=== PATIENT | male | born 1945 | race Caucasian/White ===

== ENCOUNTER 2017-02-19 18:13 | Inpatient (IN) | payer OTHER ==
[~2017-02-19] VITALS: Ht 185.4 cm; Wt 92.1 kg
[2017-02-19 19:30] VITALS: BP 147/91
--- NOTE | 2017-02-19 19:30 | NUR ---
GPS ADMISSION NOTE, RECEIVED PATIENT FROM [facility]. PATIENT ARRIVED ON THIS UNIT AT 1900 VIA STRETCHER WITH 2 EMT ESCORTS. PATIENT ADMITTED ON A 5150 HOLD FOR DTS. PER HOLD PATIENT NEIGHBOR NOTIFIED [facility] BECAUSE THE PATIENT HAS TAKEN AN EXCESSIVE AMOUNT OF HIS MEDICATION. PATIENT TOOK AN EXCESSIVE AMOUNT OF HIS MEDICATION BECAUSE HIS LEFT HIM AFTER 48 YEARS. PATIENT HAD A LARGE ASSORTMENT OF MEDICATIONS WITH HIM OF WHICH SEVERAL BOTTLES OF MEDICATION WERE EMPTY. PATIENT WAS NOT ABLE TO STAND ON HIS OWN AND IS UNABLE TO CONTRACT FOR SAFETY. THE 5150 WAS REVIEWED AND THE DOCUMENTATION IN THE 5150 HOLD APPEARS TO REFLECT THE PRESENTATION OF THE PATIENT. UPON FACE TO FACE ASSESSMENT PATIENT IS CURRENTLY LYING IN BED AWAKE, HAS NO S/S OR COMPLAINTS OF PAIN. PATIENT IS DISPLAYING NO S/S OF APPARENT DISTRESS. PATIENT BREATHING IS UNLABORED WITH EQUAL RISE AND FALL OF THE CHEST. PATIENT IS ALERT AND ORIENTATED X 3 ON ROOM AIR. PATIENT ASSISTED WITH TURING AND REPOSITIONING Q2HR AND PRN FOR COMFORT AND CIRCULATION. PATIENT HAS NO NEEDS AT THIS TIME. PATIENT IS NOTED TO BEING WITHDRAWN, DEPRESSED, DISHEVELED, DISORGANIZED, COOPERATIVE, AND NEEDS REDIRECTION. PATIENT DENIES SUICIDE IDEATIONS AND HOMICIDAL IDEATIONS AT THIS TIME. PATIENT IS UNDER THE PSYCHIATRIC CARE OF DR. AGUILAR AND THE MEDICAL CARE OF DR BARAHONA. PATIENT BELONGINGS WERE INVENTORIED AND CHECKED FOR CONTRABAND. ALL CONTRABAND REMOVED AND STORED IN PATIENT HALLWAY LOCKER. PATIENT ADVANCED DIRECTIVES PREFERENCE, IMMUNIZATIONS QUESTIONER, NECESSARY PAPERWORK, AND SKIN ASSESSMENT COMPLETED. PATIENT ORIENTATED TO ROOM, FLOOR, AND STAFF WITH ALL QUESTIONS ANSWERED. PATIENT EDUCATED ON THE USE OF THE CALL MARES. PATIENT BED SIDE RAILS ARE UP X 2 FOR SAFETY. PATIENT BED IS LOCKED, LOW AND I WILL CONTINUE TO MONITOR THIS PATIENT Q 15 MIN WITH THE HELP OF STAFF TO MAINTAIN SAFETY.
[2017-02-19] MEDS ORDERED: MAGNESIUM HYDROXIDE 30 ML UDC PO PRN (20:30)
[2017-02-19] MEDS ORDERED: ACETAMINOPHEN 325 MG TABLET PO PRN (20:30)
[2017-02-19] MEDS ORDERED: ZOLPIDEM TARTRATE 5 MG TABLET PO PRN (20:30)
[2017-02-19] MEDS ORDERED: LORAZEPAM 0.5 MG TABLET PO PRN (20:30)
[2017-02-19] MEDS ORDERED: MAG HYDROX/AL HYDROX/SIMETH 30 ML UDC PO PRN (20:30)
[2017-02-19] MEDS ORDERED: ASPI-991 PO (20:31)
[2017-02-19] MEDS ORDERED: DULO30CA2 PO (20:32)
[2017-02-19] MEDS ORDERED: GABA-534 PO (20:34)
[2017-02-19] MEDS ORDERED: GABA600T2 PO (20:35)
[2017-02-19] MEDS ORDERED: LISI40TA4 PO (20:35)
[2017-02-19] MEDS ORDERED: MORP15TA PO (20:37)
[2017-02-19 20:41] VITALS: BP 147/91
[2017-02-19] MEDS ORDERED: TRAZ-147 PO (20:41)
[2017-02-19] MEDS ORDERED: TAMS0.4C34 PO (20:41)
[2017-02-19] MEDS ORDERED: METF500T4 PO (20:42)
[2017-02-19] MEDS ORDERED: ATOR20TA PO (20:53)
[2017-02-19] MEDS ORDERED: MORPHINE SULFATE IR 15 MG TABLET PO PRN (21:00)
[2017-02-19] MEDS ORDERED: DEXTROSE 50%-WATER 50 ML DISP.SYRIN IV PRN (21:00)
[2017-02-20 07:21] LABS: CREATININE 1.1 mg/dL (0.6-1.3)
[2017-02-20] MEDS: BLOOD SUGAR DIAGNOSTIC 1 EACH STRIP IN SCH ×3 (07:54→17:36)
[2017-02-20 08:00] VITALS: BP 150/90
[2017-02-20] MEDS: METFORMIN 500 MG TABLET PO SCH ×2 (10:15→16:34)
[2017-02-20] MEDS: ASPIRIN EC 81 MG TABLET.DR PO SCH (10:15)
[2017-02-20] MEDS: GABAPENTIN 300 MG CAPSULE PO SCH (10:15)
[2017-02-20] MEDS: ATORVASTATIN 10 MG TABLET PO SCH (10:15)
[2017-02-20] MEDS: TAMSULOSIN 0.4 MG CAP.SR.24H PO SCH (10:15)
[2017-02-20] MEDS: LISINOPRIL (20MG) 20 MG TABLET PO SCH (10:16)
[2017-02-20] MEDS: INSULIN REGULAR, HUMAN 100 UNIT/ML 3 ML VIAL SQ PRN (10:27)
--- NOTE | 2017-02-20 10:28 | NUR ---
FOIL OPERATOR-NOTES PATIENT BLOOD SUGAR WAS 164 MG/DL,3 UNITS OF HUMULIN R GIVEN ORDERED.
--- NOTE | 2017-02-20 15:54 | NUR ---
Initial discharge plan: Pt. lives alone and wants to return to [address] [place] [id number] . Pt. wants to return. will contact Carli, , and will help form safe and proper discharge.
[2017-02-20 16:00] VITALS: BP 142/85
--- NOTE | 2017-02-20 19:19 | NUR ---
GPS/RN NOTE: PATIENT RESTING IN BED, PLEASANT AND RESPONDS WHEN ENGAGED. NO ACUTE DISTRESS NOTED, DENIES ANY DISCOMFORT.
[2017-02-20 20:00] VITALS: BP 162/94
[2017-02-20 21:38] LABS: IRON, SERUM 40 ug/dl (50-175); TOTAL IRON BINDING CAPACITY 327 ug/dl (250-450)
[2017-02-20] MEDS ORDERED: GABAPENTIN 300 MG CAPSULE PO SCH (22:00)
[2017-02-20] MEDS ORDERED: DULOXETINE HCL 30 MG CAPSULE.DR PO SCH (22:00)
[2017-02-21 07:06] LABS: BASOPHILS % (AUTO) 0.5 % (0.0-2.0); EOSINOPHILS # (AUTO) 0.3 /CMM (0.0-0.7); EOSINOPHILS % (AUTO) 6.5 % (0.0-6.0); HEMATOCRIT 39 % (39-51); HEMOGLOBIN 13.1 g/dL (13.5-17.5); LYMPHOCYTES % (AUTO) 19.3 % (20.0-44.0); MEAN CORPUSCULAR HEMOGLOBIN 28 PG (26.0-33.0); MEAN CORPUSCULAR HGB CONC 33 g/dl (31.0-36.0); MEAN CORPUSCULAR VOLUME 86 fL (80-96); MONOCYTES # (AUTO) 0.6 /CMM (0.1-1.30); MONOCYTES % (AUTO) 12.1 % (2.0-12.0); NEUTROPHILS # (AUTO) 3.2 /CMM (1.8-8.9); NEUTROPHILS % (AUTO) 61.6 % (43.0-81.0); PLATELET COUNT (AUTO) 231 /CMM (150-450); RDW COEFFICIENT OF VARIATION 13.7 (11.5-15.0); RED BLOOD CELL COUNT(AUTO) 4.59 MIL/uL (4.5-6.0); WHITE BLOOD COUNT (AUTO) 5.2 K/uL (4.3-11.0)
[2017-02-21] MEDS: BLOOD SUGAR DIAGNOSTIC 1 EACH STRIP IN SCH ×3 (07:26→17:35)
[2017-02-21 07:38] LABS: CALCIUM, SERUM 8.6 mg/dL (8.5-10.1); CREATININE 0.8 mg/dL (0.6-1.3); MAGNESIUM 1.7 mg/dL (1.8-2.4); PHOSPHORUS 2.8 mg/dL (2.5-4.9); POTASSIUM 3.3 mmol/L (3.5-5.1)
[2017-02-21 08:00] VITALS: BP 153/81
[2017-02-21] MEDS: METFORMIN 500 MG TABLET PO SCH ×2 (08:04→16:23)
[2017-02-21] MEDS: ATORVASTATIN 10 MG TABLET PO SCH (08:04)
[2017-02-21] MEDS: LISINOPRIL (20MG) 20 MG TABLET PO SCH (08:05)
[2017-02-21] MEDS: ASPIRIN EC 81 MG TABLET.DR PO SCH (08:05)
[2017-02-21] MEDS: GABAPENTIN 300 MG CAPSULE PO SCH (08:05)
[2017-02-21] MEDS: TAMSULOSIN 0.4 MG CAP.SR.24H PO SCH (08:05)
[2017-02-21 08:30] LABS: THYROID STIMULATING HORMONE 1.425 uIU/mL (0.358-3.74)
[2017-02-21] MEDS ORDERED: POTASSIUM CHLORIDE 20 MEQ TAB.PRT.SR PO SCH (10:30)
[2017-02-21] MEDS ORDERED: MAGNESIUM OXIDE 400 MG TABLET PO ONE (10:30)
[2017-02-21] MEDS: INSULIN REGULAR, HUMAN 100 UNIT/ML 3 ML VIAL SQ PRN ×2 (11:58→17:10)
[2017-02-21 16:00] VITALS: BP 131/75
--- NOTE | 2017-02-21 17:58 | NUR ---
GPS RN: PATIENT C/O CHEST PAIN RATING 03/25. VS 158/91 HR 72, O2 SAT 95% AT ROOM AIR, T 98.0 RR 20. PATIENT IS ANXIOUS AND RESTLESS. DENIES SOB. DR. JOSSE GOODMAN FOR ORDERS, AWAITING CALL BACK. Addendum: 02/21/17 at 1815 by JERRY NICHOLAS RN DR. BARAHONA IS THE DESULPHURIZER OPERATOR FOR TODAY, HOWEVER, PER [employer] SHE IS OFF CALL AT THIS TIME, DR. LOAIZA IS BODY PRESS OPERATOR.
--- NOTE | 2017-02-21 18:11 | NUR ---
GPS RN: DR. LOAIZA CALLED BACK WITH NEW ORDERS, EKG AND TROPONIN STAT, NOTED AND CARRIED OUT.
--- NOTE | 2017-02-21 19:05 | NUR ---
GPS RN: PATIENT IS ASLEEP AT THIS TIME, RESPIRATION EVEN AND UNLABORED, SKIN WARM TO TOUCH, DRY. TROPONIN PENDING. WILL ENDORSE TO THE UPCOMING NURSE ACCORDINGLY.
--- NOTE | 2017-02-21 19:22 | NUR ---
GPS/RN NOTE: PAGED EPIC, RE: POSITIVE TROPONIN, 0.412.
--- NOTE | 2017-02-21 19:26 | NUR ---
GPS/RN NOTE: SPOKE TO DR. MARTIN, RELAYED POSITIVE TROPONIN OF 0.412, EKG SINUS RHYTHM, OLD INFERIOR INFARCT. MD TRUONG TO TRANSFER PATIENT TO TELEMETRY. VITALS NOW 142/93, HR 71. PATIENT STATED THAT HE FEELS BETTER NOW.
--- NOTE | 2017-02-21 20:38 | NUR ---
GPS/RN NOTE: TRANSFERRED PATIENT TO THE TELE UNIT WITH A BED, CONNECTED TO TELEMONITOR. ROOM 316-A. REPORT GIVEN TO TERESA PLAZA FOR CONTINUITY OF CARE. PATIENT CONDITION STABLE, NO CHEST PAIN NOTED AT THIS TIME. A/O X3.
[2017-02-21] MEDS ORDERED: ACET-868 PO (21:33)
[2017-02-21] MEDS ORDERED: ZOLP5TAB7 PO (21:53)
[2017-02-21] MEDS ORDERED: MAGN400O4 PO (21:53)
[2017-02-21] MEDS ORDERED: LORA0.5T PO (21:53)
[2017-02-21] MEDS ORDERED: LISI40TA4 PO (21:53)
[2017-02-21] MEDS ORDERED: MAG30ORA PO (21:53)
--- NOTE | 2017-02-22 06:57 | NUR ---
GPS/RN NOTE: PATIENT'S BELA WAS NOTIFIED OF THE TRANSFER IN ROOM 316-1 TELEMETRY UNIT.
--- NOTE | 2017-02-22 06:59 | NUR ---
GPS/RN NOTE: DR AGUILAR WAS NOTIFIED ABOUT PATIENT 'S TRANSFER TO TELE UNIT DUE TO CHEST PAIN, IN ROOM 316-1.
[2017-02-25] MEDS ORDERED: MORP15TA PO (02:05)
== END 2017-02-21 20:03 | disposition short-term general hospital (02) | DRG 885 ==
LOC: GPS 18:17
PROVIDERS: ADMIT Psychiatry & Neurology Psychosomatic Medicine; ATTEND Internal Medicine
DX: F32.3 Major depressive disorder, single episode, severe with psychotic features (principal); N18.3 Chronic kidney disease, stage 3 (moderate); F03.91 Unspecified dementia, unspecified severity, with behavioral disturbance; E11.22 Type 2 diabetes mellitus with diabetic chronic kidney disease; F29 Unspecified psychosis not due to a substance or known physiological condition; E11.40 Type 2 diabetes mellitus with diabetic neuropathy, unspecified; I48.0 Paroxysmal atrial fibrillation; E78.5 Hyperlipidemia, unspecified; K21.9 Gastro-esophageal reflux disease without esophagitis; I25.10 Atherosclerotic heart disease of native coronary artery without angina pectoris; Z91.5 Personal history of self-harm; Z96.659 Presence of unspecified artificial knee joint; N40.0 Benign prostatic hyperplasia without lower urinary tract symptoms; I12.9 Hypertensive chronic kidney disease with stage 1 through stage 4 chronic kidney disease, or unspecified chronic kidney disease
CPT/HCPCS: 36415; 80048-TC; 80061-TC; 82565-TC; 82746; 82962-TC; 83540-TC; 83735-TC; 84100-TC; 84443-TC; 84484-TC; 85025-TC; 87081-TC; J1815

== ENCOUNTER 2017-02-21 20:54 | Inpatient (IN) | payer OTHER ==
[~2017-02-21] VITALS: Ht 185.4 cm; Wt 89.0 kg
--- NOTE | 2017-02-21 20:30 | NUR ---
DRESS FINISHER NOTES RECEIVED PT FROM GPS, REPORT RECEIVED FROM TERESA CAMARILLO. PT IS A/0 X 2, VERBALLY RESPONSIVE NO DISTRESS, NO SOB NOTED . BREATHING EVEN AND UNLABORED. WITH C/O CHEST PAIN 2/10 AT THIS TIME, NON RADIATING, UNABLE TO CHARACTERIZE PAIN, RELIEVED BY DISTRACTION AND INACTIVITY. ALL NEEDS AT THIS TIME ATTENDED AND MET. ON 1:1 SITTER FOR SAFETY. CALL LIGHT WITHIN REACH. BED ON LOWEST LEVEL. SR UP X 2 . WILL CONT TO MONITOR. AWAITING FOR ADMISSION ORDERS FROM DR. MARTIN.
--- NOTE | 2017-02-21 20:45 | NUR ---
INSERTED IV ON RIGHT WRIST G#20 , WITH GOOD VENOUS RETURN. PT ACE WELL.
[~2017-02-21 20:54] MED LIST: ASPI-991 PO; ATOR20TA PO; DULO30CA2 PO; GABA-534 PO; GABA600T2 PO; LISI40TA4 PO; METF500T4 PO; MORP15TA PO; TAMS0.4C34 PO; TRAZ-147 PO
[2017-02-21] MEDS ORDERED: ONDANSETRON HCL/PF 4 MG/2 ML VIAL IVP PRN (21:30)
[2017-02-21] MEDS ORDERED: MORPHINE SULFATE INJ 2 MG/ML DISP.SYRIN IV PRN (21:30)
[2017-02-21] MEDS ORDERED: ACET-868 PO (21:33)
[2017-02-21] MEDS ORDERED: MAG30ORA PO (21:53)
[2017-02-21] MEDS ORDERED: MAGN400O4 PO (21:53)
[2017-02-21] MEDS ORDERED: LISI40TA4 PO (21:53)
[2017-02-21] MEDS ORDERED: LORA0.5T PO (21:53)
[2017-02-21] MEDS ORDERED: ZOLP5TAB7 PO (21:53)
[2017-02-21] MEDS ORDERED: ASPIRIN 81 MG TAB.CHEW ONE (22:00)
[2017-02-21] MEDS ORDERED: METOPROLOL TARTRATE 25 MG TABLET ONE (22:01)
[2017-02-21] MEDS ORDERED: SIMVASTATIN 20 MG TABLET ONE (22:02)
[2017-02-21] MEDS: SIMVASTATIN 20 MG TABLET PO SCH (22:20)
[2017-02-21] MEDS: METOPROLOL TARTRATE 25 MG TABLET PO SCH (22:27)
[2017-02-21] MEDS: ASPIRIN 81 MG TAB.CHEW PO SCH (22:27)
--- NOTE | 2017-02-21 22:30 | NUR ---
PT ON SR 74 WITH FIRST DEGREE AV BLOCK ON TELE MONITOR. DENIES ANY CHEST PAIN AT THIS TIME.
[2017-02-21] MEDS ORDERED: NITROGLYCERIN 0.4 MG/TAB BOTTLE ONE (22:34)
[2017-02-21] MEDS: NITROGLYCERIN 0.4 MG/TAB BOTTLE SL PRN (22:41)
--- NOTE | 2017-02-21 22:41 | NUR ---
PT C/O CHEST PAIN 7/10 RADIATING TO HIS LEFT ARM, PT UNABLE TO CHARACTERIZE HOW THE PAIN IS LIKE. BP : 149/ 93, NITRO GIVEN ORDERED. WILL CONT TO MONITOR CLOSELY.
--- NOTE | 2017-02-21 22:46 | NUR ---
PT VERBALIZED THAT HIS CHEST PAIN WAS RELIEVED BY NITRO, DENIES ANY CHEST PAIN OR DISCOMFORT AT THIS TIME. WILL CONT TO MONITOR.
[2017-02-21] MEDS ORDERED: DEXTROSE 50%-WATER 50 ML DISP.SYRIN IV PRN (23:00)
[2017-02-21] MEDS ORDERED: ENOXAPARIN SODIUM 100 MG/ML DISP.SYRIN SQ ONE (23:06)
[2017-02-21] MEDS ORDERED: ZOLPIDEM TARTRATE 5 MG TABLET ONE (23:08)
[2017-02-21] MEDS: ENOXAPARIN SODIUM 100 MG/ML DISP.SYRIN SQ SCH (23:18)
--- NOTE | 2017-02-21 23:18 | NUR ---
LOVENOX 90 MG SQ GIVEN ORDERED WITNESSED BY TERESA PATTERSON.
[2017-02-21] MEDS: ZOLPIDEM TARTRATE 5 MG TABLET PO PRN (23:19)
[2017-02-21] MEDS: BLOOD SUGAR DIAGNOSTIC 1 EACH STRIP IN SCH (23:34)
[2017-02-21] MEDS: INSULIN REGULAR, HUMAN 100 UNIT/ML 3 ML VIAL SQ PRN (23:36)
--- NOTE | 2017-02-22 00:08 | NUR ---
RELAYED TROPONIN : 0.[address] MARTIN, AND ALSO PT WAS SEEN AND EXAMINED BY DR. MARTIN.
[2017-02-22] MEDS ORDERED: ONDANSETRON HCL/PF 4 MG/2 ML VIAL ONE (04:43)
[2017-02-22] MEDS: NITROGLYCERIN 0.4 MG/TAB BOTTLE SL PRN ×2 (05:15→08:49)
--- NOTE | 2017-02-22 07:00 | NUR ---
pt was seen and examined by dr. bush.
[2017-02-22] MEDS: BLOOD SUGAR DIAGNOSTIC 1 EACH STRIP IN SCH ×4 (07:04→21:05)
--- NOTE | 2017-02-22 07:15 | NUR ---
FILLER SIFTER MACHINE NOTES PT IS AWAKE, PT IS A/0 X 2, VERBALLY RESPONSIVE NO DISTRESS, NO SOB NOTED . BREATHING EVEN AND UNLABORED. DENIES ANY CHEST PAIN OR DISCOMFORT AT THIS TIME. ALL NEEDS AT THIS TIME ATTENDED AND MET. LATEST BS : 116. NO S/S OF HYPOGLYCEMIA. ON 1:1 SITTER FOR SAFETY. CALL LIGHT WITHIN REACH. BED ON LOWEST LEVEL. SR UP X 2 . ENDORSED TO DAY SHIFT RN FOR JAI.
[2017-02-22 07:46] LABS: BASOPHILS % (AUTO) 0.5 % (0.0-2.0); EOSINOPHILS # (AUTO) 0.2 /CMM (0.0-0.7); EOSINOPHILS % (AUTO) 4.5 % (0.0-6.0); HEMATOCRIT 40 % (39-51); HEMOGLOBIN 13.1 g/dL (13.5-17.5); LYMPHOCYTES # (AUTO) 1.1 /CMM (0.8-4.8); LYMPHOCYTES % (AUTO) 23.2 % (20.0-44.0); MEAN CORPUSCULAR HEMOGLOBIN 28 PG (26.0-33.0); MEAN CORPUSCULAR HGB CONC 33 g/dl (31.0-36.0); MEAN CORPUSCULAR VOLUME 86 fL (80-96); MONOCYTES # (AUTO) 0.7 /CMM (0.1-1.30); MONOCYTES % (AUTO) 14.6 % (2.0-12.0); NEUTROPHILS # (AUTO) 2.7 /CMM (1.8-8.9); NEUTROPHILS % (AUTO) 57.2 % (43.0-81.0); PLATELET COUNT (AUTO) 236 /CMM (150-450); RDW COEFFICIENT OF VARIATION 13.6 (11.5-15.0); RED BLOOD CELL COUNT(AUTO) 4.66 MIL/uL (4.5-6.0); WHITE BLOOD COUNT (AUTO) 4.8 K/uL (4.3-11.0)
--- NOTE | 2017-02-22 07:50 | NUR ---
MS/RN OPENING NOTES RECEIVED PT ASLEEP IN BED, EASILY AWAKENS WITH SITTER AT BEDSIDE. A/O X2, NO C/O PAIN OR DISCOMFORTS AT THIS TIME. ON TELE-MONITORING WITH CURRENT READING OF SR WITH PVC'S 74, NO C/O OF CHEST PAIN AT THIS TIME. IV ACCESS ON RIGHT WRIST INTACT AND PATENT. ON ROOM AIR, BREATHING EVEN AND UNLABORED. BED IN LOW POSITION AND LOCKED WITH SIDE RAILS UP X2. CALL LIGHT WITHIN REACH. ALL SAFETY MEASURES WILL BE MAINTAINED. WILL CONTINUE TO MONITOR PT ACCORDINGLY.
[2017-02-22 08:00] VITALS: BP 171/103
[2017-02-22 08:02] LABS: CALCIUM, SERUM 8.7 mg/dL (8.5-10.1); CREATININE 0.8 mg/dL (0.6-1.3); POTASSIUM 2.9 mmol/L (3.5-5.1)
[2017-02-22] MEDS: ASPIRIN 81 MG TAB.CHEW PO SCH (08:42)
[2017-02-22] MEDS: METOPROLOL TARTRATE 25 MG TABLET PO SCH ×2 (08:43→17:12)
[2017-02-22] MEDS: ENOXAPARIN SODIUM 100 MG/ML DISP.SYRIN SQ SCH ×2 (08:51→21:03)
--- NOTE | 2017-02-22 08:59 | NUR ---
RN NOTES PATIENT COMPLAINED OF CHEST PAIN, OFFERED TO GIVE NITROSTAT 0.4MG BUT REFUSED AND STATED THAT IT DOESN'T WORK FOR HIM. MORPHINE SULFATE 1MG IV OFFERED AND SAID YES. MORPHINE SULF[facility] TAKEN OUT FROM [facility] BUT PT SUDDENLY SAID THAT IT'S ONLY MILD CHEST PAIN AND WILL TAKE THE NITROSTAT 0.4MG SUBLINGUAL INSTEAD AND GIVEN RELIVING HIS CHEST PAIN. WILL CONTINUE TO MONITOR.
[2017-02-22] MEDS ORDERED: MORPHINE SULFATE INJ 4 MG/ML DISP.SYRIN IV PRN (09:00)
[2017-02-22] MEDS ORDERED: VALSARTAN 80 MG TABLET PO SCH (09:00)
--- NOTE | 2017-02-22 09:18 | NUR ---
RN NOTES PATIENT STILL WITH HIGH TROPONIN 1 LEVEL 0.481 THIS MORNING. POTASSIUM LEVEL ALSO LOW 2.9, MD MADE AWARE WITH ORDER TO CLOSELY MONITO R PT AND TO GIVE K-DUR 60MEQ TAB PO X 1 DOSE. WILL CONTINUE TO MONITOR.
[2017-02-22 09:21] LABS: ALBUMIN 3.2 g/dL (3.4-5.0); CALCIUM, SERUM 8.9 mg/dL (8.5-10.1); CREATININE 0.7 mg/dL (0.6-1.3); MAGNESIUM 1.6 mg/dL (1.8-2.4); PHOSPHORUS 2.9 mg/dL (2.5-4.9)
[2017-02-22 09:38] LABS: TOTAL PROTEIN, SERUM 6.6 g/dL (6.4-8.2)
--- NOTE | 2017-02-22 09:47 | NUR ---
RN NOTES PT REFUSED MORPHINE SULFATE 1MG IVP EARLIER. WENT TO RETURN MORPHINE IN THE OMNICELL BUT COULDN'T BE WASTED BECAUSE SYRINGE DOSE IS 4MG AND 3 MG WASTED ALREADY EARLIER IN THE OMNICELL. CALLED PHARMACY AND CAME-UP TO UNIT AND SAME TRIED TO WASTE MORPHINE 4MG IN THE OMNICELL BUT OMNICELL WOULDN'T ALLOW HER. PHARMACIST SAID THAT SHE WILL TAKE THE MORPHINE DOWN IN THE PHARMACY AND WILL WASTE IT THERE AND JUST WRITE IT ON THE PROGRESS NOTES.
--- NOTE | 2017-02-22 09:56 | NUR ---
RN NOTES PT WENT DOWN TO RADIOLOGY FOR CHEST X-RAY VIA WHEELCHAIR.
[2017-02-22 09:58] LABS: BILIRUBIN,TOTAL 0.5 mg/dL (0.2-1.0)
[2017-02-22] MEDS ORDERED: POTASSIUM CHLORIDE 10 MEQ TABLET.SA PO ONE (10:00)
[2017-02-22 12:00] VITALS: BP 149/99
[2017-02-22] MEDS: Magnesium 1GM/D5W 100ML PREMIX 100 ML IV SCH ×2 (12:37→13:23)
[2017-02-22] MEDS: INSULIN REGULAR, HUMAN 100 UNIT/ML 3 ML VIAL SQ PRN (12:39)
[2017-02-22] MEDS: LORAZEPAM 1 MG TABLET PO PRN ×2 (12:41→21:04)
--- NOTE | 2017-02-22 12:42 | NUR ---
RN NOTES PATIENT NOTED RESTLESS, STANDING UP AND WALKING AROUND HIS ROOM AND ALSO ON THE HALLWAYS. SEEN BY DR FIELD WITH ORDER TO GIVE ATIVAN 1MG TAB Q 8HRS PRN. WILL CONTINUE TO MONITOR.
--- NOTE | 2017-02-22 15:10 | NUR ---
RN NOTES RECEIVED CALL FROM LAB THAT PT'S TROPONIN LEVEL TAKEN AT 1301H STILL HIGH 0.538, DR NEVES MADE AWARE. WILL CONTINUE TO MONITOR
[2017-02-22 16:00] VITALS: BP 145/89
--- NOTE | 2017-02-22 19:32 | NUR ---
TELE/RN CLOSING NOTES PATIENT RESTING IN BED WITH SITTER AT BEDSIDE. A/O X2 WITH PERIOD OF AGITATION NOTED DURING THE DAY. MAINTAINED ON TELE-MONITORING WITH CURRENT READING OF SR WITH PAC'S 73, NO C/O OF CHEST PAIN AT THIS TIME. IV ACCESS ON RIGHT WRIST INTACT AND PATENT. ON ROOM AIR, BREATHING EVEN AND UNLABORED. KEPT BED IN LOW POSITION AND LOCKED WITH SIDE RAILS UP X2. CALL LIGHT WITHIN REACH. ALL SAFETY MEASURES WILL MAINTAINED. ALL NEEDS AND CARE ATTENDED WELL. ALL DUE MEDS GIVEN AND TOLERATED. ENDORSED TO PROCESS SAFETY SPECIALIST NURSE FOR JAI.
--- NOTE | 2017-02-22 19:45 | NUR ---
TELERN FULLY AWAKE, BEHAVIOR ACCEPTABLE, COOPERATIVE. SITTER AT BEDSIDE. PAIN FREE. NO NEEDS FOR NOW.
[2017-02-22 20:00] VITALS: BP 151/97
--- NOTE | 2017-02-22 21:00 | NUR ---
TELERN WANTS ALL MEDS GIVEN EARLY. STATED DID NOT HAVE THE CHANCE TO SLEEP. DUE MEDS ADMINISTERED. ATIVAN 1 MG PO GIVEN FOR NOW, APPEARS TO GET AGITATED OF THIS TIME. BS WAS 128 NO COVERAGE. BRP STANDBY ASSIST.
[2017-02-22] MEDS: SIMVASTATIN 20 MG TABLET PO SCH (21:04)
[2017-02-23] VITALS (9 sets, daily range): BP systolic 126–160; BP diastolic 76–101
--- NOTE | 2017-02-23 04:34 | NUR ---
TELERN SLEEPING, APPEARS COMFORTABLE.
[2017-02-23] MEDS: BLOOD SUGAR DIAGNOSTIC 1 EACH STRIP IN SCH ×4 (07:01→21:48)
--- NOTE | 2017-02-23 07:03 | NUR ---
TELERN BS 129. NO COVERAGE. NO COMPLAINTS MADE.
[2017-02-23 07:30] LABS: BASOPHILS % (AUTO) 0.8 % (0.0-2.0); EOSINOPHILS # (AUTO) 0.3 /CMM (0.0-0.7); EOSINOPHILS % (AUTO) 4.9 % (0.0-6.0); HEMATOCRIT 42 % (39-51); HEMOGLOBIN 13.7 g/dL (13.5-17.5); LYMPHOCYTES # (AUTO) 1.2 /CMM (0.8-4.8); LYMPHOCYTES % (AUTO) 22.8 % (20.0-44.0); MEAN CORPUSCULAR HEMOGLOBIN 28 PG (26.0-33.0); MEAN CORPUSCULAR HGB CONC 33 g/dl (31.0-36.0); MEAN CORPUSCULAR VOLUME 85 fL (80-96); MONOCYTES # (AUTO) 0.7 /CMM (0.1-1.30); MONOCYTES % (AUTO) 14.1 % (2.0-12.0); NEUTROPHILS # (AUTO) 3.1 /CMM (1.8-8.9); NEUTROPHILS % (AUTO) 57.4 % (43.0-81.0); PLATELET COUNT (AUTO) 238 /CMM (150-450); RDW COEFFICIENT OF VARIATION 13.9 (11.5-15.0); RED BLOOD CELL COUNT(AUTO) 4.88 MIL/uL (4.5-6.0); WHITE BLOOD COUNT (AUTO) 5.3 K/uL (4.3-11.0)
--- NOTE | 2017-02-23 07:56 | NUR ---
MOUNTER OPENING NOTE PATIENT IS ALERT AND ORIENTED x3. HARD OF HEARING. NO PAIN STATED AT THIS TIME, BY PATIENT. ON 5250 HOLD FOR HARM TO SELF. ENDS ON 03/06/17. CALL LIGHT WITHIN REACH. SAFETY MEASURES IMPLEMENTED. ABLE TO COMMUNICATE NEEDS. SITTER AT BEDSIDE. AMBULATORY. ON TELE MONITOR-SINUS RHYTHM. CARDIAC DIET. IV INTACT AND PATENT NO REDNESS OR SWELLING NOTED. BLOOD SUGARS TO BE MONITORED. NO KNOWN ALLERGIES. CALL LIGHT WITHIN REACH. SAFETY MEASURES IMPLEMENTED. WILL CONTINUE TO MONITOR
[2017-02-23 07:58] LABS: CALCIUM, SERUM 9.1 mg/dL (8.5-10.1); CREATININE 0.7 mg/dL (0.6-1.3); MAGNESIUM 2.1 mg/dL (1.8-2.4); PHOSPHORUS 3.5 mg/dL (2.5-4.9); POTASSIUM 3.1 mmol/L (3.5-5.1)
[2017-02-23] MEDS: ASPIRIN 81 MG TAB.CHEW PO SCH (08:53)
[2017-02-23] MEDS: POTASSIUM CHLORIDE 20 MEQ TAB.PRT.SR PO SCH ×3 (08:53→12:23)
[2017-02-23] MEDS: METOPROLOL TARTRATE 25 MG TABLET PO SCH ×2 (08:53→17:12)
[2017-02-23] MEDS: VALSARTAN 80 MG TABLET PO SCH (08:54)
[2017-02-23] MEDS: ENOXAPARIN SODIUM 100 MG/ML DISP.SYRIN SQ SCH ×3 (08:55→21:54)
[2017-02-23] MEDS: NITROGLYCERIN 0.4 MG/TAB BOTTLE SL PRN ×2 (09:27→22:14)
[2017-02-23] MEDS: LORAZEPAM 1 MG TABLET PO PRN ×2 (09:56→23:38)
[2017-02-23] MEDS: clonazePAM 0.5 MG TABLET PO SCH ×2 (12:23→17:12)
[2017-02-23] MEDS ORDERED: SERTRALINE HCL 25 MG TABLET PO SCH (13:00)
[2017-02-23] MEDS: HYDROCODONE/APAP 5/325MG 1 EACH TABLET PO PRN (17:12)
[2017-02-23] MEDS ORDERED: METHYL SALICYLATE/MENTHOL 28GM 28 GM TUBE TP PRN (18:00)
--- NOTE | 2017-02-23 18:42 | NUR ---
BULKER CLOSING NOTE PATIENT IS ALERT AND ORIENTED x3. NO PAIN AT THIS TIME. NO SOB OR DISTRESS NOTED. CALL LIGHT WITHIN REACH AT ALL TIMES. SAFETY MEASURES IMPLEMENTED. ALL DUE MEDICATIONS GIVEN ORDERED. ALL NURSING CARE NEEDS ATTENDED TO. ON 5250 FOR HARM TO SELF. HAS SITTER AT BEDSIDE. NO THOUGHTS OF SUICIDAL IDEATION NOTED THROUGHOUT MY SHIFT. NO PLAN TO CARRY OUT SUICIDAL IDEATION MENTIONED WHEN ASKED. ABLE TO COMMUNICATE NEEDS. WILL ENDORSE TO CONCERT PROMOTER NURSE FOR JAI
--- NOTE | 2017-02-23 19:30 | NUR ---
INFORMATION COORDINATOR OPENING NOTES: PATIENT IN BED, AOX3, NO ROOM AIR AT THIS TIME. BREATHING EVEN AND UNLABORED. BREATH SOUNDS CLEAR TO AUSCULTATION, SLIGHTLY DIMINISHED AT LOWER LUNG SHAIKH. APPEARS CALM ,COOPERATIVE AND IN NO DISTRESS. DENIES CHEST PAIN AT THIS TIME. DOES NOT VERBALIZE ANY SUICIDAL IDEATION/ THOUGHTS OF HARMING SELF OR OTHERS. ON TELE MONITORING: SR AT RATE OF 70S WITH OCCASIONAL PVCS. PIV OVER R WRIST G20 INTACT AND PATENT TO FLUSH. PROVIDED FOR SAFE ENVIRONMENT, SITTER AT BEDSIDE. BED IN LOWEST AND LOCKED POSITION, SIDERAILS UPX3. WILL CONT TO MONITOR.
[2017-02-23] MEDS ORDERED: NICOTINE PATCH (21MG) 21 MG PATCH.TD24 TD SCH (20:00)
--- NOTE | 2017-02-23 21:41 | NUR ---
SPOKE TO DR MARTIN RE LOVENOX 90 MG SCHEDULED FOR TONIGHT AT 2100 PM, WHETHER IT CAN BE GIVEN SINCE PATIENT WILL BE GOING FOR CARDIAC CATH TOMORROW AT [facility] SCHEDULED AT 10 AM.
--- NOTE | 2017-02-23 21:44 | NUR ---
PER DR MARTIN, OK TO GIVE LOVENOX AT THIS TIME.
[2017-02-23] MEDS: ZOLPIDEM TARTRATE 5 MG TABLET PO PRN (21:47)
[2017-02-23] MEDS: SIMVASTATIN 20 MG TABLET PO SCH (21:47)
[2017-02-23] MEDS: INSULIN REGULAR, HUMAN 100 UNIT/ML 3 ML VIAL SQ PRN (21:53)
--- NOTE | 2017-02-23 22:10 | NUR ---
SPOKE TO DR BRADEN RE PT'S LOVENOX, PER , HOLD THE LOVENOX TONIGHT AND TOMORROW AM. NOTED AND CARRIED OUT. JAYMIE HELD FOR ANNA.
--- NOTE | 2017-02-23 22:14 | NUR ---
RN NOTES: PATIENT COMPLAINNG OF CHEST PAIN, UNABLE TO SCALE, DESCRIBED "VERY HIGH" AND PRESSING. ADMINISTERED NITROSTAT SL 0.4 MG PRN. BP CHECKED AT 154/101, HR: 65, ON O2 AT 3 LPM VIA NC. WILL CONT TO MONITOR CLOSELY.
--- NOTE | 2017-02-23 22:24 | NUR ---
RN NOTES: SPOKE TO DR AGUILAR OVER PHONE, INFORMED MD THAT PATIENT HAS BEEN CALM AND COOPERATIVE, NO VERBALIZATION OF SI, BUT IS COMPLAINING OF CP. DR AGUILAR GAVE INSTRUCTIONS TO CALL HER AT 0630 AM TOMORROW, SO THAT HOLD CAN BE D'SHANTE, AND TO GIVE ATIVAN AT AROUND 0615 AM. NO SPECIFIC INSTRUCTION GIVEN IF [facility] WILL BE S[facility],, BUT PER DR AGUILAR, AMBULANCE HAS AN RN, AND WE CAN CALL HER KAELYN AM TO VERIFY IF NEEDED .
--- NOTE | 2017-02-23 22:35 | NUR ---
PATIENT STATES THAT CHEST PAIN HAS "GONE DOWN". BP RECHECKED AT 140/97, HR: 68 O2 SAT 97% ON 3 LPM VIA NC.
[2017-02-24] VITALS: BP 160/79
[2017-02-24] MEDS: HYDROCODONE/APAP 5/325MG 1 EACH TABLET PO PRN (00:57)
[2017-02-24 04:00] VITALS: BP 153/98
[2017-02-24 04:49] LABS: BASOPHILS % (AUTO) 0.5 % (0.0-2.0); EOSINOPHILS # (AUTO) 0.3 /CMM (0.0-0.7); EOSINOPHILS % (AUTO) 5.8 % (0.0-6.0); HEMATOCRIT 44 % (39-51); HEMOGLOBIN 14.4 g/dL (13.5-17.5); LYMPHOCYTES # (AUTO) 1.3 /CMM (0.8-4.8); LYMPHOCYTES % (AUTO) 23.9 % (20.0-44.0); MEAN CORPUSCULAR HEMOGLOBIN 28 PG (26.0-33.0); MEAN CORPUSCULAR HGB CONC 33 g/dl (31.0-36.0); MEAN CORPUSCULAR VOLUME 86 fL (80-96); MONOCYTES # (AUTO) 0.7 /CMM (0.1-1.30); MONOCYTES % (AUTO) 13.3 % (2.0-12.0); NEUTROPHILS # (AUTO) 3.1 /CMM (1.8-8.9); NEUTROPHILS % (AUTO) 56.5 % (43.0-81.0); PLATELET COUNT (AUTO) 228 /CMM (150-450); RED BLOOD CELL COUNT(AUTO) 5.09 MIL/uL (4.5-6.0); WHITE BLOOD COUNT (AUTO) 5.5 K/uL (4.3-11.0)
[2017-02-24 05:12] LABS: ALBUMIN 3.4 g/dL (3.4-5.0); BILIRUBIN,TOTAL 0.5 mg/dL (0.2-1.0); CREATININE 0.8 mg/dL (0.6-1.3); MAGNESIUM 2.1 mg/dL (1.8-2.4); PHOSPHORUS 3.9 mg/dL (2.5-4.9); POTASSIUM 3.1 mmol/L (3.5-5.1)
[2017-02-24 05:20] LABS: TROPONIN I 0.42 ng/mL (0.00-0.056)
--- NOTE | 2017-02-24 05:44 | NUR ---
RN NOTES: INFORMED DR LUX THAT PATIENT'S SERUM K : 3.1. MD ORDERED FOR KCL 40 MEQS PO ONE TIME ONLY. ALSO INFORMED MD THAT TROPONIN HAS TRENDED DOWN TO 0.420, BUT IS STILL ELEVATED. NNO GIVEN.
[2017-02-24] MEDS ORDERED: POTASSIUM CHLORIDE 20 MEQ TAB.PRT.SR PO ONE ×2 (05:48→06:00)
[2017-02-24] MEDS: BLOOD SUGAR DIAGNOSTIC 1 EACH STRIP IN SCH ×2 (05:51→12:27)
[2017-02-24 06:05] LABS: INR 1.08 (0.87-1.13); PROTHROMBIN TIME 11.6 SECS (9.5-12.7)
--- NOTE | 2017-02-24 06:16 | NUR ---
RN NOTES: SPOKE TO DR AGUILAR, PER MD, GIVEN ATIVAN 1 MG PO ONCE AT AROUND [id number] AM PRIOR TO PICKUP. ALSO ORDERED FOR 5250 HOLD TO BE D'SHANTE. PER MD, NO URGENT NEED FOR SITTER TO ACCOMPANY PATIENT TO [facility], AMBULANCE WILL BE WITH AN RN. NOTED AND CARRIED OUT.
[2017-02-24] MEDS: LORAZEPAM 1 MG TABLET PO PRN (06:21)
[2017-02-24] MEDS: INSULIN REGULAR, HUMAN 100 UNIT/ML 3 ML VIAL SQ PRN ×2 (06:36→12:26)
--- NOTE | 2017-02-24 06:45 | NUR ---
RN NOTES: CALLED , BELA LINDSAY , ABOUT PATIENT BEING TRANSFERRED TO [facility], HOWEVER, SHE DID NOT ANSER, LEFT VOICEMAIL.
--- NOTE | 2017-02-24 07:05 | NUR ---
surgical instrument mechanic initial notes Received patient in bed, asleep, head of bed elevated, no SOB or distress noted, on 02 @ 2lpm via NC and tolerated wel, lungs are clear on auscultation, 02 saturation of 98%, no complaint of pain or discomfort at this time. IV intact and patent. Kept patient NPO at this time to transfer to [facility] for cardiac cath. Sitter at bedside for constant monitoring. Kept patient clean and comfortable in bed, call light with in patient reach, will continue to monitor accordingly. On tele monitor SR heart rate of 70 with PVC's.
--- NOTE | 2017-02-24 07:30 | NUR ---
RN NOTES: GAVE REPORT TO TERESA BLANCA AT [facility]. PER EVANGELIST, GREEK PROFESSOR TIME MUST BE CHANGED TO 0800 AM 0700 AM GREEK PROFESSOR IS TOO EARLY. CALLED MED [facility]PONSE TO ADJUST THE GREEK PROFESSOR TIME.
[2017-02-24 08:00] VITALS: BP 144/79
--- NOTE | 2017-02-24 08:00 | NUR ---
RN NOTES: REPORT GIVEN TO MED [facility]PON[facility] GROCERY SPECIALIST.
--- NOTE | 2017-02-24 08:05 | NUR ---
utility plant operative notes Received a call from [facility] rn case mgr Aletha and per Aletha to cancel the transfer due to she spoke to her that he had cath in november this year. Informed Dr. Light and made aware, resume all medications and previous diet order. All orders carried out and noted. Will continue to monitor accordingly.
[2017-02-24] MEDS: METOPROLOL TARTRATE 25 MG TABLET PO SCH ×2 (09:25→16:09)
[2017-02-24] MEDS: clonazePAM 0.5 MG TABLET PO SCH ×3 (09:25→16:08)
[2017-02-24] MEDS: VALSARTAN 80 MG TABLET PO SCH (09:25)
[2017-02-24] MEDS: ENOXAPARIN SODIUM 100 MG/ML DISP.SYRIN SQ SCH (09:26)
[2017-02-24] MEDS: ASPIRIN 81 MG TAB.CHEW PO SCH (09:27)
[2017-02-24] MEDS ORDERED: SERTRALINE HCL 25 MG TABLET PO SCH (14:00)
[2017-02-24] MEDS ORDERED: METO25TA20 PO (14:55)
[2017-02-24] MEDS ORDERED: HYDR-3326 PO (14:55)
[2017-02-24] MEDS ORDERED: METH28OI2 TP (14:55)
[2017-02-24] MEDS ORDERED: ASPI81TA2 PO ×2 (14:55→18:37)
[2017-02-24] MEDS ORDERED: VALS80TA2 PO (14:55)
[2017-02-24] MEDS ORDERED: SERT25TA5 PO (14:55)
[2017-02-24] MEDS ORDERED: SIMV20TA6 PO ×2 (14:55→18:37)
[2017-02-24] MEDS ORDERED: CLON0.5T4 PO ×2 (14:55→18:37)
[2017-02-24] MEDS ORDERED: Blood Sugar Diagnostic IN (14:55)
[2017-02-24 16:00] VITALS: BP 148/90
[2017-02-24 16:09] VITALS: BP 148/90
--- NOTE | 2017-02-24 18:15 | NUR ---
ms sock turner notes Discharge instructions given to patient and able to understand instructions. Signed discharge paper and belonging list. Patient discharge to [facility], report given to Ena. All hold paper transferred to [facility]. Flu vaccine not given due to out of season, Pneumonia vaccine refused. Explained the risk and benefits x 3 and still refused vaccination. Patient left the unit via wheelchair accompanied by assigned CONTINUOUS IMPROVEMENT CONSULTANT in stable condition, no SOB or distress noted. No complaint of pain or discomfort noted, nor chest pain. Vital signs checked and recorded. Skin is intact. MD and charge nurse aware.
[2017-02-24] MEDS ORDERED: HYDR-552 PO (18:37)
[2017-02-24] MEDS ORDERED: METO25TA6 PO (18:37)
[2017-02-24] MEDS ORDERED: SERT25TA PO (18:37)
[2017-02-24] MEDS ORDERED: VALS160T2 PO (18:37)
[2017-02-25] MEDS ORDERED: MORP15TA PO ×2 (02:05)
[2017-02-25] MEDS ORDERED: GABA600T2 PO (02:11)
[2017-02-25] MEDS ORDERED: GABA-534 PO (02:11)
== END 2017-02-24 17:17 | DRG 281 ==
LOC: TELE 20:54 → MED 02-24 08:08
PROVIDERS: ADMIT Internal Medicine; ATTEND Psychiatry & Neurology Psychosomatic Medicine
DX: I21.4 Non-ST elevation (NSTEMI) myocardial infarction (principal); E44.1 Mild protein-calorie malnutrition; E11.22 Type 2 diabetes mellitus with diabetic chronic kidney disease; F33.3 Major depressive disorder, recurrent, severe with psychotic symptoms; I13.0 Hypertensive heart and chronic kidney disease with heart failure and stage 1 through stage 4 chronic kidney disease, or unspecified chronic kidney disease; I50.9 Heart failure, unspecified; J98.11 Atelectasis; I48.91 Unspecified atrial fibrillation; N18.3 Chronic kidney disease, stage 3 (moderate); D50.9 Iron deficiency anemia, unspecified; E87.6 Hypokalemia; E83.42 Hypomagnesemia; E78.5 Hyperlipidemia, unspecified; K21.9 Gastro-esophageal reflux disease without esophagitis; Z86.73 Personal history of transient ischemic attack (TIA), and cerebral infarction without residual deficits; N40.0 Benign prostatic hyperplasia without lower urinary tract symptoms; Z98.61 Coronary angioplasty status; Z91.5 Personal history of self-harm; I25.10 Atherosclerotic heart disease of native coronary artery without angina pectoris; Z68.25 Body mass index [BMI] 25.0-25.9, adult
CPT/HCPCS: 36415; 71010-TC; 71020-TC; 80048-TC; 80053-TC; 80061-TC; 82962-TC; 83735-TC; 84100-TC; 84484-TC; 85025-TC; 85610-TC; 85730-TC; 87081-TC; 93307-TC; J1650; J1815; J2270; J2405; J3475; J7050

== ENCOUNTER 2017-02-24 17:28 | Inpatient (IN) | payer OTHER ==
[~2017-02-24 17:28] MED LIST changes: +ACET-868 PO; +ASPI81TA2 PO; +Blood Sugar Diagnostic IN; +CLON0.5T4 PO; +HYDR-3326 PO; +LORA0.5T PO; +MAG30ORA PO; +MAGN400O4 PO; +METH28OI2 TP; +METO25TA20 PO; +SERT25TA5 PO; +SIMV20TA6 PO; +VALS80TA2 PO; +ZOLP5TAB7 PO
[2017-02-24] MEDS ORDERED: MAG HYDROX/AL HYDROX/SIMETH 30 ML UDC PO PRN (18:30)
[2017-02-24] MEDS ORDERED: MAGNESIUM HYDROXIDE 30 ML UDC PO PRN (18:30)
[2017-02-24] MEDS ORDERED: ACETAMINOPHEN 325 MG TABLET PO PRN (18:30)
[2017-02-24] MEDS ORDERED: HYDR-552 PO (18:37)
[2017-02-24] MEDS ORDERED: METO25TA6 PO (18:37)
[2017-02-24] MEDS ORDERED: CLON0.5T4 PO (18:37)
[2017-02-24] MEDS ORDERED: VALS160T2 PO (18:37)
[2017-02-24] MEDS ORDERED: ASPI81TA2 PO (18:37)
[2017-02-24] MEDS ORDERED: SERT25TA PO (18:37)
[2017-02-24] MEDS ORDERED: SIMV20TA6 PO (18:37)
[2017-02-24] MEDS ORDERED: DEXTROSE 50%-WATER 50 ML DISP.SYRIN IV PRN (19:30)
[2017-02-24] MEDS: HYDROCODONE/APAP 5/325MG 1 EACH TABLET PO PRN (20:28)
[2017-02-24] MEDS: TEMAZEPAM 7.5 MG CAPSULE PO PRN (21:21)
[2017-02-24] MEDS: SIMVASTATIN 20 MG TABLET PO SCH (21:21)
[2017-02-24] MEDS: BLOOD SUGAR DIAGNOSTIC 1 EACH STRIP VI SCH (21:26)
[2017-02-24] MEDS: *INSULIN REGULAR(HUMULIN R)HUM 100 UNIT/ML VIAL SQ PRN (21:28)
[2017-02-25] MEDS: HYDROCODONE/APAP 5/325MG 1 EACH TABLET PO PRN ×4 (00:50→22:13)
[2017-02-25] MEDS ORDERED: MORP15TA PO ×2 (02:05)
[2017-02-25] MEDS ORDERED: GABA600T2 PO (02:11)
[2017-02-25] MEDS ORDERED: GABA-534 PO (02:11)
[2017-02-25] MEDS: BLOOD SUGAR DIAGNOSTIC 1 EACH STRIP VI SCH ×4 (07:43→21:03)
[2017-02-25] MEDS: INSULIN REGULAR, HUMAN 100 UNIT/ML 3 ML VIAL SQ PRN ×2 (08:11→17:05)
[2017-02-25] MEDS: TAMSULOSIN 0.4 MG CAP.SR.24H PO SCH (08:12)
[2017-02-25] MEDS: METFORMIN 500 MG TABLET PO SCH ×2 (08:12→16:07)
[2017-02-25] MEDS: ASPIRIN 81 MG TAB.CHEW PO SCH (08:12)
[2017-02-25] MEDS: METOPROLOL TARTRATE 25 MG TABLET PO SCH ×2 (08:13→16:08)
[2017-02-25] MEDS: VALSARTAN 80 MG TABLET PO SCH (08:13)
[2017-02-25] MEDS ORDERED: POTASSIUM CHLORIDE 20 MEQ TAB.PRT.SR PO SCH (12:00)
[2017-02-25] MEDS: LORAZEPAM 0.5 MG TABLET PO PRN (13:17)
[2017-02-25] MEDS: DIVALPROEX SODIUM 125 MG TABLET.DR PO SCH ×2 (15:07→21:03)
[2017-02-25] MEDS: SERTRALINE HCL 50 MG TABLET PO SCH (15:07)
[2017-02-25] MEDS: SIMVASTATIN 20 MG TABLET PO SCH (21:03)
[2017-02-25] MEDS: TEMAZEPAM 7.5 MG CAPSULE PO PRN (21:03)
[2017-02-25] MEDS: *INSULIN REGULAR(HUMULIN R)HUM 100 UNIT/ML VIAL SQ PRN (21:08)
[2017-02-25] MEDS ORDERED: MORPHINE SULFATE SR 15 MG TABLET.SA ONE (23:42)
[2017-02-26] MEDS ORDERED: MORPHINE SULFATE SR 15 MG TABLET.SA PO PRN
[2017-02-26] MEDS: HYDROCODONE/APAP 5/325MG 1 EACH TABLET PO PRN ×2 (06:37→20:35)
[2017-02-26] MEDS: BLOOD SUGAR DIAGNOSTIC 1 EACH STRIP VI SCH ×4 (07:30→21:50)
[2017-02-26] MEDS: TAMSULOSIN 0.4 MG CAP.SR.24H PO SCH (09:31)
[2017-02-26] MEDS: VALSARTAN 80 MG TABLET PO SCH (09:31)
[2017-02-26] MEDS: MORPHINE SULFATE SR 15 MG TABLET.SA PO SCH ×2 (09:35→17:32)
[2017-02-26] MEDS: ASPIRIN 81 MG TAB.CHEW PO SCH (09:35)
[2017-02-26] MEDS: METOPROLOL TARTRATE 25 MG TABLET PO SCH ×2 (09:35→17:33)
[2017-02-26] MEDS: METFORMIN 500 MG TABLET PO SCH ×2 (09:35→17:32)
[2017-02-26] MEDS: SERTRALINE HCL 50 MG TABLET PO SCH (09:37)
[2017-02-26] MEDS: DIVALPROEX SODIUM 125 MG TABLET.DR PO SCH ×2 (09:40→21:46)
[2017-02-26] MEDS: INSULIN REGULAR, HUMAN 100 UNIT/ML 3 ML VIAL SQ PRN (09:50)
[2017-02-26] MEDS: LORAZEPAM 0.5 MG TABLET PO PRN (12:51)
[2017-02-26] MEDS: SIMVASTATIN 20 MG TABLET PO SCH (21:46)
[2017-02-27] MEDS: TAMSULOSIN 0.4 MG CAP.SR.24H PO SCH (08:20)
[2017-02-27] MEDS: DIVALPROEX SODIUM 125 MG TABLET.DR PO SCH (08:20)
[2017-02-27] MEDS: METOPROLOL TARTRATE 25 MG TABLET PO SCH (08:20)
[2017-02-27] MEDS: SERTRALINE HCL 50 MG TABLET PO SCH (08:20)
[2017-02-27] MEDS: METFORMIN 500 MG TABLET PO SCH (08:20)
[2017-02-27] MEDS: VALSARTAN 80 MG TABLET PO SCH (08:21)
[2017-02-27] MEDS: ASPIRIN 81 MG TAB.CHEW PO SCH (08:21)
[2017-02-27] MEDS: BLOOD SUGAR DIAGNOSTIC 1 EACH STRIP VI SCH (08:24)
[2017-02-27] MEDS: MORPHINE SULFATE SR 15 MG TABLET.SA PO SCH (09:00)
== END 2017-02-27 11:17 | disposition home or self-care (01) | DRG 885 ==
DX: F33.2 Major depressive disorder, recurrent severe without psychotic features (principal); N18.9 Chronic kidney disease, unspecified; E11.22 Type 2 diabetes mellitus with diabetic chronic kidney disease; I48.91 Unspecified atrial fibrillation; F23 Brief psychotic disorder; I12.9 Hypertensive chronic kidney disease with stage 1 through stage 4 chronic kidney disease, or unspecified chronic kidney disease; I25.10 Atherosclerotic heart disease of native coronary artery without angina pectoris; E78.5 Hyperlipidemia, unspecified; N40.0 Benign prostatic hyperplasia without lower urinary tract symptoms; K21.9 Gastro-esophageal reflux disease without esophagitis; Z86.73 Personal history of transient ischemic attack (TIA), and cerebral infarction without residual deficits; Z91.5 Personal history of self-harm; Z98.61 Coronary angioplasty status; Z73.6 Limitation of activities due to disability; F41.9 Anxiety disorder, unspecified; F09 Unspecified mental disorder due to known physiological condition; Z96.659 Presence of unspecified artificial knee joint